=== PATIENT | female | born 1970 | race African-American/Black ===

== ENCOUNTER → 2017-02-13 | Outpatient (CLI) | payer BC ==
--- NOTE | 2017-02-13 16:43 | KCIC ---
Bilateral digital diagnostic mammograms: Reason for examination: Fibrocystic changes felt on clinical exam in the 12:00 to 3:00 position of the right breast. Baseline exam. Family history of breast cancer. The skin and nipples show no abnormalities. No abnormal lymph nodes are seen. The breast parenchyma is predominantly fatty. (Breast density: Category A.) There are no dominant masses, suspicious calcifications or architectural distortions. A few benign calcifications are seen consistent with a degenerating fibroadenoma in the 11:00 position anteriorly in the right breast. In the area of clinical concern at the 12:00 B position, there is no focal abnormality seen. Impression: No evidence of malignancy. Ultrasound to follow. BI-RADS Category 0: Incomplete. Ultrasound to follow. Right breast ultrasound: Ultrasound examination was performed in the area of clinical concern. At the 12:30 position 15 cm from the nipple in a raised area on the breast, there was an 8.3 x 6.7 x 8.1 mm lobule of tissue which is isoechoic to fat and probably represents a lipoma. In the 12:00 position 4 cm from the nipple, there is a small focus of nodularity with echogenic plaques consistent with calcification seen mammographically and probably representing a degenerating fibroadenoma. No other cystic or solid lesions are seen. IMPRESSION: Probable lipoma in the 12:30 position which is isoechoic to the adjacent fat but appears to correspond with the area of clinical concern. Probable small fibroadenoma with calcification at the anterior 12:00 position. Recommend reevaluation with right breast mammograms and ultrasound in 3 months. BI-RADS Category 3: Probably Benign. "Our facility is accredited by the [employer] Mammography [employer]." This patient's information has been entered into a reminder system for the patient to be notified with the results of her examination and a target date for the next mammogram. Electronically signed by: Vee Lacy MD (02/13/2017 4:39 PM) [facility]
== END | disposition home or self-care (01) ==
LOC: KCIC MAMMO 11:41
PROVIDERS: ATTEND Family Medicine
DX: R92.8 Other abnormal and inconclusive findings on diagnostic imaging of breast (principal)
CPT/HCPCS: 76641; G0204; 77066

== ENCOUNTER → 2017-05-23 | Outpatient (CLI) | payer BC ==
--- NOTE | 2017-05-23 10:28 | KCIC ---
DATE: 05/23/2017 EXAM: DIGITAL DIAGNOSTIC RT, BREAST RIGHT HISTORY: Raised lump in the right breast. COMPARISON: Prior mammogram from 02/13/2017, right breast ultrasound 02/13/2017 This study was interpreted with the benefit of Computerized Aided Detection (CAD). The breast parenchyma is primarily fatty replaced. Breast parenchyma level density A. FINDINGS: Right breast CC and MLO views were obtained. Targeted right breast ultrasound was performed. In the region of palpable concern, no suspicious mass, microcalcifications or areas of architectural distortion are identified. Right breast is stable from prior mammogram. Targeted ultrasound was performed in the region of palpable abnormality. There is a lobulated isoechoic mass without significant posterior characteristics at the 12:30 position, 15 cm from the nipple measuring 7 x 7 x 8 mm, previously measuring similar. Findings are nonspecific, however most suggestive of a lipoma and probably benign. IMPRESSION: Probably benign findings the right breast. Recommend 6 month follow-up ultrasound to ensure stability of palpable finding most suggestive of lipoma. BI-RADS CATEGORY: 3 PROBABLY BENIGN FINDING(S)-SHORT INTERVAL FOLLOW-UP SUGGESTED RECOMMENDED FOLLOW-UP: 6M 6 MONTH FOLLOW-UP Mammography is a sensitive method for finding small breast cancers, but it does not detect them all and is not a substitute for careful clinical examination. A negative mammogram does not negate a clinically suspicious finding and should not result in delay in biopsying a clinically suspicious abnormality. "Our facility is accredited by the [employer] Mammography [employer]."
== END | disposition home or self-care (01) ==
LOC: KCIC MAMMO 08:46
PROVIDERS: ATTEND Family Medicine
DX: N63.10 Unspecified lump in the right breast, unspecified quadrant (principal)
CPT/HCPCS: 76641; G0206; 77065

== ENCOUNTER 2018-03-24 12:22 | Inpatient (IN) | payer BC ==
[~2018-03-24] VITALS: Ht 165.1 cm; Wt 136.1 kg
[2018-03-24] MEDS ORDERED: IV NORMAL SALINE 1000ML BAG 1,000 ML IV ONE ×2 (12:45→14:30)
[2018-03-24 12:53] LABS: BASO # 0.1 x10^3/uL (0.0-0.2); BASO % 1 % (0-3); EOS # 0.4 x10^3/uL (0.0-0.7); EOS % 4 % (0-3); HEMOGLOBIN 12.4 g/dL (12.0-15.5); LYMPH # 3.8 x10^3/uL (1.0-4.8); LYMPH % 31 % (24-48); MEAN CORPUSCULAR HEMOGLOBIN 25 pg (25-35); MEAN CORPUSCULAR HGB CONC 32 g/dL (31-37); MEAN CORPUSCULAR VOLUME 79 fL (79-100); MONO # 0.9 x10^3/uL (0.0-1.1); MONO % 7 % (0-9); NEUT # 7.1 x10^3uL (1.8-7.7); NEUT % 57 % (31-73); PLATELET COUNT 377 x10^3/uL (140-400); RED BLOOD COUNT 4.96 x10^6/uL (3.50-5.40); RED CELL DISTRIBUTION WIDTH 15.7 % (11.5-14.5); WHITE BLOOD COUNT 12.4 x10^3/uL (4.0-11.0)
[2018-03-24 13:08] LABS: CALCIUM 9.1 mg/dL (8.5-10.1); CREATININE 0.9 mg/dL (0.6-1.0); GFR 81.6; POTASSIUM 3.7 mmol/L (3.5-5.1)
[2018-03-24 13:15] LABS: PROTHROMBIN TIME PATIENT > 120.0 SEC (11.7-14.0)
[2018-03-24 13:20] LABS: ALBUMIN 3.1 g/dL (3.4-5.0); ALBUMIN/GLOBULIN RATIO 0.7 (1.0-1.7); TOTAL BILIRUBIN 0.3 mg/dL (0.2-1.0); TOTAL PROTEIN 7.6 g/dL (6.4-8.2)
[2018-03-24 14:12] LABS: PROTHROMBIN TIME PATIENT 13.6 SEC (11.7-14.0)
[2018-03-24] MEDS ORDERED: OXYTOCIN 10 UNIT/ML VIAL. ONE ×3 (14:53→16:53)
[2018-03-24] MEDS ORDERED: miSOPROStol 200MCG TAB 200 MCG TABLET ONE (14:53)
--- NOTE | 2018-03-24 15:15 | PHYS DOC ---
Past Medical History Past Medical History: Diabetes-Type II, High Cholesterol, Hypertension Past Surgical History: TURP, Other Additional Past Surgical Histo: BILATERAL KNEES AND LEGS Alcohol Use: None Drug Use: None Adult General Chief Complaint Chief Complaint: VAGINAL BLEEDING HPI HPI Patient is a 47 year old female presenting to the emergency room with vaginal bleeding heavy this morning came out of nowhere no trauma went through 6 towels does have a history of heavy periods as well as irregular periods she thinks she is about time for her. No abdominal pain no fever no other symptoms history of hypertension and diabetes. Review of Systems Review of Systems Limited by acuity Current Medications Current Medications Current Medications Medications (Trade) Dose Ordered Sig/Charley Start Time Stop Time Status Last Admin Dose Admin Dexamethasone Sodium Phosphate (Decadron) 20 mg STK-MED ONCE 03/24/18 15:34 03/24/18 15:35 DC Fentanyl Citrate (Fentanyl 2ml Vial) 50 mcg PRN Q5MIN PRN 03/24/18 15:45 03/25/18 15:44 Hydromorphone HCl (Dilaudid) 0.5 mg PRN Q10MIN PRN 03/24/18 15:45 03/25/18 15:44 Lidocaine HCl (Lidocaine Pf 2% Vial) 5 ml STK-MED ONCE 03/24/18 15:34 03/24/18 15:35 DC Lidocaine HCl (Xylocaine-Mpf 1% 2ml Vial) 2 ml 1X PRN PRN 03/24/18 15:45 03/25/18 15:44 Morphine Sulfate (Morphine Sulfate) 1 mg PRN Q10MIN PRN 03/24/18 15:45 03/25/18 15:44 Ondansetron HCl (Zofran) 4 mg PRN Q6HRS PRN 03/24/18 15:45 03/25/18 15:44 Prochlorperazine Edisylate (Compazine) 5 mg PACU PRN PRN 03/24/18 15:45 03/25/18 15:44 Propofol 20 ml @ As Directed STK-MED ONCE 03/24/18 15:34 03/24/18 15:35 DC Ringer's Solution 1,000 ml @ 30 mls/hr Q24H 03/24/18 15:39 03/25/18 03:38 Sodium Chloride 1,000 ml @ 1,000 mls/hr 1X ONCE 03/24/18 14:30 03/24/18 15:29 DC 03/24/18 12:45 1,000 MLS/HR Allergies Allergies Allergies Coded Allergies Type Severity Reaction Last Updated Verified No Known Drug Allergies 03/24/18 No Physical Exam Physical Exam Constitutional: Well developed, well nourished, no acute distress, non-toxic appearance. [] HENT: Normocephalic, atraumatic, bilateral external ears normal, oropharynx moist, no oral exudates, nose normal. [] Eyes: PERRLA, EOMI, conjunctiva normal, no discharge. [] Neck: Normal range of motion, no tenderness, supple, no stridor. [] Pulmonary: Normal respiratory effort no increased work of breathing no obvious chest wall trauma Abdomen: Bowel sounds normal, soft, no tenderness, no masses, no pulsatile masses. [] : There is brisk vaginal bleeding that does pOOL in the vaginal vault I'm unable to identify the source. Extremities: No tenderness, no cyanosis, no clubbing, ROM intact, no edema. [] Neurologic: Alert and oriented X 3, normal motor function, normal sensory function, no focal deficits noted. [] Psychologic: Affect normal, judgement normal, mood normal. [] Current Patient Data Vital Signs Vital Signs Date Time Temp Pulse Resp B/P (MAP) Pulse Ox O2 Delivery O2 Flow Rate FiO2 03/24/18 15:41 99.1 118 19 114/74 99.1 03/24/18 14:30 99 Room Air Lab Values Laboratory Tests Test 03/24/18 12:42 03/24/18 13:13 White Blood Count 12.4 x10^3/uL (4.0-11.0) H Red Blood Count 4.96 x10^6/uL (3.50-5.40) Hemoglobin 12.4 g/dL (12.0-15.5) Hematocrit 39.0 % (36.0-47.0) Mean Corpuscular Volume 79 fL (79-100) Mean Corpuscular Hemoglobin 25 pg (25-35) Mean Corpuscular Hemoglobin Concent 32 g/dL (31-37) Red Cell Distribution Width 15.7 % (11.5-14.5) H Platelet Count 377 x10^3/uL (140-400) Neutrophils (%) (Auto) 57 % (31-73) Lymphocytes (%) (Auto) 31 % (24-48) Monocytes (%) (Auto) 7 % (0-9) Eosinophils (%) (Auto) 4 % (0-3) H Basophils (%) (Auto) 1 % (0-3) Neutrophils # (Auto) 7.1 x10^3uL (1.8-7.7) Lymphocytes # (Auto) 3.8 x10^3/uL (1.0-4.8) Monocytes # (Auto) 0.9 x10^3/uL (0.0-1.1) Eosinophils # (Auto) 0.4 x10^3/uL (0.0-0.7) Basophils # (Auto) 0.1 x10^3/uL (0.0-0.2) Prothrombin Time > 120.0 SEC (11.7-14.0) *H 13.6 SEC (11.7-14.0) Prothrombin Time INR > 15.0 (0.8-1.1) *H 1.1 (0.8-1.1) Maternal Serum HCG Beta Subunit 1 mIU/mL (0-5) Sodium Level 138 mmol/L (136-145) Potassium Level 3.7 mmol/L (3.5-5.1) Chloride Level 103 mmol/L (98-107) Carbon Dioxide Level 26 mmol/L (21-32) Anion Gap 9 (6-14) Blood Urea Nitrogen 15 mg/dL (7-20) Creatinine 0.9 mg/dL (0.6-1.0) Estimated GFR (Cockcroft-Gault) 81.6 BUN/Creatinine Ratio 17 (6-20) Glucose Level 245 mg/dL (70-99) H Calcium Level 9.1 mg/dL (8.5-10.1) Total Bilirubin 0.3 mg/dL (0.2-1.0) Aspartate Amino Transferase (AST) 13 U/L (15-37) L Alanine Aminotransferase (ALT) 24 U/L (14-59) Alkaline Phosphatase 71 U/L (46-116) Total Protein 7.6 g/dL (6.4-8.2) Albumin 3.1 g/dL (3.4-5.0) L Albumin/Globulin Ratio 0.7 (1.0-1.7) L Laboratory Tests 03/24/18 12:42 Laboratory Tests 03/24/18 12:42 EKG EKG [] Radiology/Procedures Radiology/Procedures [] Course & Med Decision Making Course & Med Decision Making Pertinent Labs and Imaging studies reviewed. (See chart for details) []47-year-old female not presenting with profuse vaginal bleeding suspect dysfunctional uterine bleeding she denied any vaginal trauma. She was bleeding quite briskly she was quite tachycardic on arrival this improved with IV fluids patient was typed and cross for 2 units of packed red blood cells I did speak with Dr. Tyson from gynecology who will take this patient for a D&C she is at the bedside in the emergency room at around 2:30 PM Dragdonald Disclaimer Dragon Disclaimer This electronic medical record was generated, in whole or in part, using a voice recognition dictation system. Departure Departure Impression: Primary Impression: Dysfunctional uterine bleeding Disposition: ADMITTED INPATIENT Admitting Physician: Other Condition: STABLE Referrals: BHARATH BLACKWOOD MD (PCP) SAKSHI FRAGA MD Mar 24, 2018 15:14
[2018-03-24 15:19] VITALS: BP 122/83
[2018-03-24 15:28] VITALS: BP 127/80
[2018-03-24] MEDS ORDERED: DEXAMETHASONE SOD PHOS 20 MG/5 ML VIAL. ONE (15:34)
[2018-03-24] MEDS ORDERED: LIDOCAINE 2% PF Vial for OR 5 ML VIAL. ONE (15:34)
[2018-03-24] MEDS ORDERED: PROPOFOL 20 ML IV ONE (15:34)
[2018-03-24] MEDS ORDERED: ONDANSETRON PF 4 MG/2 ML VIAL. ONE (15:34)
[2018-03-24] MEDS ORDERED: IV RINGERS,LACTATED 1000ML 1,000 ML IV SCH (15:39)
[2018-03-24 15:41] VITALS: BP 114/74
[2018-03-24] MEDS ORDERED: fentaNYL PF VIAL 100 MCG/2 ML VIAL IV PRN ×2 (15:45)
[2018-03-24] MEDS ORDERED: ONDANSETRON PF 4 MG/2 ML VIAL. IV PRN ×2 (15:45→16:45)
[2018-03-24] MEDS ORDERED: HYDROmorphone 2 MG/ML VIAL IV PRN (15:45)
[2018-03-24] MEDS ORDERED: LIDOCAINE 1% PF 2 ML VIAL. ID PRN (15:45)
[2018-03-24] MEDS ORDERED: MORPHINE SULFATE 2 MG/ML VIAL. IV PRN (15:45)
[2018-03-24] MEDS ORDERED: PROCHLORPERAZINE 10 MG/2 ML VIAL. IV PRN (15:45)
[2018-03-24] MEDS ORDERED: CLINDAMYCIN 900MG PREMIX 50 ML IV ONE (16:24)
--- NOTE | 2018-03-24 16:43 | PDOC ---
GENERAL General: 47 YRS old came to ER with Heavy Vaginal Bleeding Passing Clots .She lost a Pint of Blood in ER. VITAL SIGNS Vital Signs: Vital Signs Date Time Temp Pulse Resp B/P (MAP) Pulse Ox O2 Delivery O2 Flow Rate FiO2 03/24/18 15:41 99.1 118 19 114/74 99.1 03/24/18 14:30 99 Room Air ALLERGIES Allergies: Allergies Coded Allergies Type Severity Reaction Last Updated Verified No Known Drug Allergies 03/24/18 No MEDS Medications: Current Medications Medications (Trade) Dose Ordered Sig/Charley Start Time Stop Time Status Last Admin Dose Admin Clindamycin Phosphate 50 ml @ As Directed STK-MED ONCE 03/24/18 16:24 03/24/18 16:25 DC Dexamethasone Sodium Phosphate (Decadron) 20 mg STK-MED ONCE 03/24/18 15:34 03/24/18 15:35 DC Fentanyl Citrate (Fentanyl 2ml Vial) 50 mcg PRN Q5MIN PRN 03/24/18 15:45 03/25/18 15:44 Hydromorphone HCl (Dilaudid) 0.5 mg PRN Q10MIN PRN 03/24/18 15:45 03/25/18 15:44 Lidocaine HCl (Lidocaine Pf 2% Vial) 5 ml STK-MED ONCE 03/24/18 15:34 03/24/18 15:35 DC Lidocaine HCl (Xylocaine-Mpf 1% 2ml Vial) 2 ml 1X PRN PRN 03/24/18 15:45 03/25/18 15:44 Misoprostol (Cytotec 200mcg Tab) 200 mcg STK-MED ONCE 03/24/18 14:53 03/24/18 15:53 DC Morphine Sulfate (Morphine Sulfate) 1 mg PRN Q10MIN PRN 03/24/18 15:45 03/25/18 15:44 Ondansetron HCl (Zofran) 4 mg PRN Q6HRS PRN 03/24/18 15:45 03/25/18 15:44 Oxytocin (Pitocin) 10 unit STK-MED ONCE 03/24/18 16:29 03/24/18 16:30 DC Prochlorperazine Edisylate (Compazine) 5 mg PACU PRN PRN 03/24/18 15:45 03/25/18 15:44 Propofol 20 ml @ As Directed STK-MED ONCE 03/24/18 15:34 03/24/18 15:35 DC Ringer's Solution 1,000 ml @ 30 mls/hr Q24H 03/24/18 15:39 03/25/18 03:38 Sodium Chloride 1,000 ml @ 1,000 mls/hr 1X ONCE 03/24/18 14:30 03/24/18 15:29 DC 03/24/18 12:45 1,000 MLS/HR LAB Lab: Laboratory Tests Test 03/24/18 12:42 03/24/18 13:13 White Blood Count 12.4 x10^3/uL (4.0-11.0) Red Blood Count 4.96 x10^6/uL (3.50-5.40) Hemoglobin 12.4 g/dL (12.0-15.5) Hematocrit 39.0 % (36.0-47.0) Mean Corpuscular Volume 79 fL (79-100) Mean Corpuscular Hemoglobin 25 pg (25-35) Mean Corpuscular Hemoglobin Concent 32 g/dL (31-37) Red Cell Distribution Width 15.7 % (11.5-14.5) Platelet Count 377 x10^3/uL (140-400) Neutrophils (%) (Auto) 57 % (31-73) Lymphocytes (%) (Auto) 31 % (24-48) Monocytes (%) (Auto) 7 % (0-9) Eosinophils (%) (Auto) 4 % (0-3) Basophils (%) (Auto) 1 % (0-3) Neutrophils # (Auto) 7.1 x10^3uL (1.8-7.7) Lymphocytes # (Auto) 3.8 x10^3/uL (1.0-4.8) Monocytes # (Auto) 0.9 x10^3/uL (0.0-1.1) Eosinophils # (Auto) 0.4 x10^3/uL (0.0-0.7) Basophils # (Auto) 0.1 x10^3/uL (0.0-0.2) Prothrombin Time > 120.0 SEC (11.7-14.0) 13.6 SEC (11.7-14.0) Prothromb Time International Ratio > 15.0 (0.8-1.1) 1.1 (0.8-1.1) Maternal Serum HCG Beta Subunit 1 mIU/mL (0-5) Sodium Level 138 mmol/L (136-145) Potassium Level 3.7 mmol/L (3.5-5.1) Chloride Level 103 mmol/L (98-107) Carbon Dioxide Level 26 mmol/L (21-32) Anion Gap 9 (6-14) Blood Urea Nitrogen 15 mg/dL (7-20) Creatinine 0.9 mg/dL (0.6-1.0) Estimated GFR (Cockcroft-Gault) 81.6 BUN/Creatinine Ratio 17 (6-20) Glucose Level 245 mg/dL (70-99) Calcium Level 9.1 mg/dL (8.5-10.1) Total Bilirubin 0.3 mg/dL (0.2-1.0) Aspartate Amino Transf (AST/SGOT) 13 U/L (15-37) Alanine Aminotransferase (ALT/SGPT) 24 U/L (14-59) Alkaline Phosphatase 71 U/L (46-116) Total Protein 7.6 g/dL (6.4-8.2) Albumin 3.1 g/dL (3.4-5.0) Albumin/Globulin Ratio 0.7 (1.0-1.7) ASSESSMENT & PLAN A&P Under GA D&C done for Menorrhagia Profuse curettings from Cervix sent for Pathological Exam. one unit of Blood Transfusion given. RANDA SCHAFER MD Mar 24, 2018 16:43
[2018-03-24] MEDS ORDERED: SEVOFLURANE 31 TO 60 MINUTES. IH ONE (16:54)
--- NOTE | 2018-03-24 17:01 | OP ---
DATE OF SURGERY: 03/24/2018 PREOPERATIVE DIAGNOSIS: Menorrhagia. POSTOPERATIVE DIAGNOSIS: Menorrhagia. OPERATION PERFORMED: Diagnostic D and C. DESCRIPTION OF PROCEDURE: The patient was taken to the operating room. Under general anesthesia, she was placed in a dorsal lithotomy position. Perineum was prepped and draped in the usual manner. Weighted speculum inserted in the posterior vaginal wall. Anterior lip of the cervix held with a tenaculum and there were tissues protruding from the external os, appears to be friable tissues and all this is removed and subjected for pathological examination and uterine sound is measured the length of the uterine cavity, which appears to be about 10 cm. A small endometrial curette is used to curet the endometrial cavity and all the curettings obtained are subjected for pathological examination. At the end of the curettage, speculum tenaculum is removed. The patient was sent to the recovery room in good condition. No complications encountered at time of the procedure. Estimated blood loss about 100 mL. Postoperative condition is stable. RANDA SCHAFER MD DR: DARCY/noreen JOB#: [id number] / [id number]
[2018-03-24] MEDS ORDERED: ALBUTEROL SULFATE 2.5 MG/3 ML NEBU. ONE (17:03)
[2018-03-24] MEDS ORDERED: ALBUTEROL SULFATE 2.5 MG/3 ML NEBU. NEB ONE (17:15)
[2018-03-24] MEDS ORDERED: INSULIN REGULAR 100 UNIT/ML 3ML VIAL. IV PRN (17:15)
[2018-03-24] MEDS ORDERED: INSULIN LISPRO 100 UNIT/ML 3ML VIAL. SQ PRN (17:15)
[2018-03-24 18:17] VITALS: BP 118/79
[2018-03-24 19:39] VITALS: BP 111/66
[2018-03-24 23:45] VITALS: BP 137/87
[2018-03-25 03:45] VITALS: BP 131/78
--- NOTE | 2018-03-25 09:34 | PDOC ---
GENERAL General: Patient feeling better Likes to go home today VITAL SIGNS Vital Signs: Vital Signs Date Time Temp Pulse Resp B/P (MAP) Pulse Ox O2 Delivery O2 Flow Rate FiO2 03/25/18 03:45 98.2 105 16 131/78 (95) Room Air 98.2 03/24/18 19:42 03/24/18 18:17 98 I & O I & O Intake and Output 03/25/18 07:00 Intake Total 4430 ml Output Total 100 ml Balance 4330 ml Intake Oral 2080 ml IV Total 2050 ml Blood Product IV Normal Saline Flush 300 ml Output Estimated Blood Loss 100 ml # Voids 3 ALLERGIES Allergies: Allergies Coded Allergies Type Severity Reaction Last Updated Verified No Known Drug Allergies 03/24/18 No MEDS Medications: Current Medications Medications (Trade) Dose Ordered Sig/Charley Start Time Stop Time Status Last Admin Dose Admin Albuterol Sulfate (Ventolin Neb Soln) 2.5 mg STK-MED ONCE 03/24/18 17:03 03/24/18 18:00 DC Clindamycin Phosphate 50 ml @ As Directed STK-MED ONCE 03/24/18 16:24 03/24/18 18:00 DC Dexamethasone Sodium Phosphate (Decadron) 20 mg STK-MED ONCE 03/24/18 15:34 03/24/18 18:00 DC Fentanyl Citrate (Fentanyl 2ml Vial) 50 mcg PRN Q5MIN PRN 03/24/18 15:45 03/24/18 18:00 DC Hydromorphone HCl (Dilaudid) 0.5 mg PRN Q10MIN PRN 03/24/18 15:45 03/24/18 18:00 DC Insulin Human Lispro (HumaLOG VIAL) 4 unit 1X PACU PRN 03/24/18 17:15 03/24/18 18:00 DC 03/24/18 17:16 4 UNIT Insulin Human Regular (HumuLIN R VIAL) 4 unit 1X PACU PRN 03/24/18 17:15 03/24/18 17:15 DC Lidocaine HCl (Lidocaine Pf 2% Vial) 5 ml STK-MED ONCE 03/24/18 15:34 03/24/18 18:10 DC Lidocaine HCl (Xylocaine-Mpf 1% 2ml Vial) 2 ml 1X PRN PRN 03/24/18 15:45 8/25/18 18:00 DC Misoprostol (Cytotec 200mcg Tab) 200 mcg STK-MED ONCE 03/24/18 14:53 03/24/18 18:10 DC Morphine Sulfate (Morphine Sulfate) 1 mg PRN Q10MIN PRN 03/24/18 15:45 03/24/18 18:00 DC Ondansetron HCl (Zofran) 4 mg PRN Q6HRS PRN 03/24/18 16:45 Oxytocin (Pitocin) 10 unit STK-MED ONCE 03/24/18 16:53 03/24/18 18:10 DC Prochlorperazine Edisylate (Compazine) 5 mg PACU PRN PRN 03/24/18 15:45 03/24/18 18:10 DC Propofol 20 ml @ As Directed STK-MED ONCE 03/24/18 15:34 03/24/18 18:00 DC Ringer's Solution 1,000 ml @ 30 mls/hr Q24H 03/24/18 15:39 03/25/18 03:38 DC Sevoflurane (Ultane) 30 ml STK-MED ONCE 03/24/18 16:54 03/24/18 18:10 DC Sodium Chloride 1,000 ml @ 1,000 mls/hr 1X ONCE 03/24/18 14:30 03/24/18 18:00 DC 03/24/18 12:45 1,000 MLS/HR LAB Lab: Laboratory Tests Test 03/24/18 12:42 03/24/18 13:13 03/24/18 16:54 White Blood Count 12.4 x10^3/uL (4.0-11.0) Red Blood Count 4.96 x10^6/uL (3.50-5.40) Hemoglobin 12.4 g/dL (12.0-15.5) Hematocrit 39.0 % (36.0-47.0) Mean Corpuscular Volume 79 fL (79-100) Mean Corpuscular Hemoglobin 25 pg (25-35) Mean Corpuscular Hemoglobin Concent 32 g/dL (31-37) Red Cell Distribution Width 15.7 % (11.5-14.5) Platelet Count 377 x10^3/uL (140-400) Neutrophils (%) (Auto) 57 % (31-73) Lymphocytes (%) (Auto) 31 % (24-48) Monocytes (%) (Auto) 7 % (0-9) Eosinophils (%) (Auto) 4 % (0-3) Basophils (%) (Auto) 1 % (0-3) Neutrophils # (Auto) 7.1 x10^3uL (1.8-7.7) Lymphocytes # (Auto) 3.8 x10^3/uL (1.0-4.8) Monocytes # (Auto) 0.9 x10^3/uL (0.0-1.1) Eosinophils # (Auto) 0.4 x10^3/uL (0.0-0.7) Basophils # (Auto) 0.1 x10^3/uL (0.0-0.2) Prothrombin Time > 120.0 SEC (11.7-14.0) 13.6 SEC (11.7-14.0) Prothromb Time International Ratio > 15.0 (0.8-1.1) 1.1 (0.8-1.1) Maternal Serum HCG Beta Subunit 1 mIU/mL (0-5) Sodium Level 138 mmol/L (136-145) Potassium Level 3.7 mmol/L (3.5-5.1) Chloride Level 103 mmol/L (98-107) Carbon Dioxide Level 26 mmol/L (21-32) Anion Gap 9 (6-14) Blood Urea Nitrogen 15 mg/dL (7-20) Creatinine 0.9 mg/dL (0.6-1.0) Estimated GFR (Cockcroft-Gault) 81.6 BUN/Creatinine Ratio 17 (6-20) Glucose Level 245 mg/dL (70-99) Calcium Level 9.1 mg/dL (8.5-10.1) Total Bilirubin 0.3 mg/dL (0.2-1.0) Aspartate Amino Transf (AST/SGOT) 13 U/L (15-37) Alanine Aminotransferase (ALT/SGPT) 24 U/L (14-59) Alkaline Phosphatase 71 U/L (46-116) Total Protein 7.6 g/dL (6.4-8.2) Albumin 3.1 g/dL (3.4-5.0) Albumin/Globulin Ratio 0.7 (1.0-1.7) Glucose (Fingerstick) 167 mg/dL (70-99) ASSESSMENT & PLAN A&P Not much vaginal bleeding today Feeling good. Will go home today. See her in office in 2 weeks. RANDA SCHAFER MD Mar 25, 2018 09:34
[2018-03-25 11:40] LABS: HEMATOCRIT 27.4 % (36.0-47.0); HEMOGLOBIN 8.8 g/dL (12.0-15.5)
[2018-03-25 13:29] VITALS: BP 134/79
== END 2018-03-25 14:18 | disposition home or self-care (01) | DRG 745 ==
LOC: ER 12:22 → 3 NORTH 14:10
PROVIDERS: ADMIT Obstetrics & Gynecology; ATTEND Obstetrics & Gynecology
PROC: 30233N1 Transfusion of Nonautologous Red Blood Cells into Peripheral Vein, Percutaneous Approach (ICD-10-PCS; 2018-03-24)
PROC: 0UDB7ZX Extraction of Endometrium, Via Natural or Artificial Opening, Diagnostic (ICD-10-PCS; principal; 2018-03-24 15:41)
DX: N92.0 Excessive and frequent menstruation with regular cycle (principal); N93.8 Other specified abnormal uterine and vaginal bleeding; I10 Essential (primary) hypertension; E78.00 Pure hypercholesterolemia, unspecified; E11.9 Type 2 diabetes mellitus without complications; Z79.84 Long term (current) use of oral hypoglycemic drugs; Z79.899 Other long term (current) drug therapy
CPT/HCPCS: 36415; 80053; 82962; 84702; 85014; 85018; 85025; 85610; 86850; 86900; 86901; 86920; 94640; 96360; 96361; A7015; J1100; J1815; J2001; J2405; J2590; J2704; J3490; J7030; J7613; P9016; 99285-25

== ENCOUNTER → 2020-08-31 | Outpatient (CLI) | payer BC ==
--- NOTE | 2020-08-31 17:53 | RAD ---
DATE: 08/31/2020 1:10 PM EXAM: DIGITAL DIAGNOSTIC BILATERAL HISTORY: Patient due for screening presents for delayed evaluation of a probably benign previously palpable lump in the superior right breast. On presentation today, she denies any residual palpable area of concern. COMPARISON: Diagnostic mammogram of 05/23/2017 Bilateral CC and MLO views of the breasts were performed. Bilateral breast tomosynthesis was performed in CC and MLO projections. This study was interpreted with the benefit of Computerized Aided Detection (CAD). FINDINGS: Breast Density: FATTY The Breast Parenchyma is primarily fatty replaced. Breast parenchyma level density A. Stable benign coarse calcifications in the anterior right breast. No suspicious masses, microcalcifications or architectural distortion is present to suggest malignancy in either breast. The visualized axillae are unremarkable. IMPRESSION: No mammographic evidence of malignancy. BI-RADS CATEGORY: 2 BENIGN FINDING(S) RECOMMENDED FOLLOW-UP: 12M 12 MONTH FOLLOW-UP Annual screening mammography is recommended, unless clinically indicated sooner based on symptoms or change in physical exam. PQRS compliance statement: Patient information was entered into a reminder system with a target due date for the next mammogram. Mammography is a sensitive method for finding small breast cancers, but it does not detect them all and is not a substitute for careful clinical examination. A negative mammogram does not negate a clinically suspicious finding and should not result in delay in biopsying a clinically suspicious abnormality. "Our facility is accredited by the [employer] Mammography Program."
== END ==
LOC: MAMMO 13:02
PROVIDERS: ATTEND Family Medicine
DX: R92.1 Mammographic calcification found on diagnostic imaging of breast (principal)
CPT/HCPCS: 77066